=== PATIENT | male | born 1965 | race Caucasian/White ===

== ENCOUNTER 2017-07-03 18:04 | Emergency (ER) | payer SELFPAY ==
[~2017-07-03] VITALS: Ht 167.6 cm; Wt 56.7 kg
--- NOTE | 2017-07-03 18:04 | NUR ---
1800--Patient was BIBA and taken to bed 02 via gurney per EMS.
[2017-07-03 18:06] VITALS: BP 147/104
[2017-07-03] MEDS: NACL 0.9% 1,000 ML IV ONE ×2 (18:10→18:55)
--- NOTE | 2017-07-03 18:10 | NUR ---
52 M BIBA FOR WITNESSED TONIC CLONIC SZ LASTING APPROX 30 SEC; NO TRAUMA OR INJURY NOTED; PT DENIES ANY HEAD, NECK, OR BACK PAIN; PT IS AOX4, DELAYED TO ANSWER; PT STS HE DRANK 3 BEERS TODAY, DENIES ANY DRUG USE; PT STS LAST SZ APPROX 1 YR AGO; PT IS SINUS TACH ON MONITOR; RR ARE EVEN AND UNLABORED; NAD. ER AWARE OF PT STATUS; WILL CONTINUE TO [facility].
--- NOTE | 2017-07-03 18:14 | NUR ---
MD VAZQUEZ BY BEDSIDE
--- NOTE | 2017-07-03 19:11 | NUR ---
pt aox4 with steady gait, gcs=15
[2017-07-03 19:12] VITALS: BP 143/92
--- NOTE | 2017-07-03 19:12 | NUR ---
Patient discharged with v/s stable. Written and verbal after care instructions given and explained. Patient alert, oriented and verbalized understanding of instructions. Ambulatory with steady gait. All questions addressed prior to discharge. ID band removed. Patient advised to follow up with PMD. Rx of Librium given. Patient educated on indication of medication including possible reaction and side effects. Opportunity to ask questions provided and answered.
== END 2017-07-03 19:13 | disposition home or self-care (01) ==
LOC: MED 18:04 → EDBD 18:04 → MED 19:13
DX: G40.89 Other seizures (principal); F17.210 Nicotine dependence, cigarettes, uncomplicated
CPT/HCPCS: 82948; 99284; J7030